=== PATIENT | male | born 1960 | race Caucasian/White ===

== ENCOUNTER 2016-06-20 08:12 | Day surgery (SDC) | payer OTHER ==
--- NOTE | 2016-06-19 18:03 | GHP ---
[f rep st] PREOP HISTORY AND PHYSICAL DATE OF ADMISSION: 06/20/2016 HISTORY OF PRESENT ILLNESS: The patient is a 56-year-old male who is admitted at this time for an op en umbilical hernia. He was having symptoms at work from a protruding umbilical hernia. He was havi ng some constipation but no nausea or vomiting. Hernia has not been incarcerated. It is not totally clear that his umbilical hernia is causing his abdominal pain. REVIEW OF SYSTEMS: Negative for any major medical problems on a full complete review of systems, par ticularly has no asthma, cardiovascular disease or diabetes. ALLERGIES: Penicillin. PRESENT MEDICATIONS: Lipitor. PAST MEDICAL HISTORY: Includes elevated cholesterol. He has had a right inguinal hernia repair and an ORIF of his hand. He does not smoke. PHYSICAL EXAMINATION: VITAL SIGNS: Reveals an alert, 56-year-old male, in no acute distress. HEAD and NECK: Negative for icterus or adenopathy. CHEST: Clear and symmetric. CARDIAC: Exam reveals a regular rhythm without murmurs. ABDOMEN: Soft. He is slightly overweight. He has a reducible, p rotruding umbilical hernia. There are no inguinal hernias. Genitalia is normal. EXTREMITIES: Yifan gn with full pulses and no edema. IMPRESSION: Symptomatic umbilical hernia. PLAN: Open umbilical hernia repair. The risks and options have been fully discussed with the patien t, including failure to relieve symptoms, recurrence of bowel injury, conversion to an open procedure and other problems, and he requests that we proceed. /[id number]/MODL
[~2016-06-20 08:12] MED LIST: BUPIVACAINE 0.5% 30 ML SDV ONE; SKIN ADHESIVE (DERMABOND) 1 EACH TP ONE
[2016-06-20] MEDS ORDERED: LIDOCAINE 1% 5 ML SDV ID PRN (08:38)
[2016-06-20] MEDS ORDERED: LR 1,000 ML IV ONE (08:38)
[2016-06-20] MEDS ORDERED: ceFAZolin 2 GM/DEXTROSE 100 ML IV ONE (09:00)
[2016-06-20] MEDS ORDERED: fentaNYL 100 MCG/2 ML INJ ONE ×2 (10:47→10:48)
[2016-06-20] MEDS ORDERED: LIDOCAINE 2% 5 ML SDV ONE (11:32)
[2016-06-20] MEDS ORDERED: DEXAMETHASONE 4 MG/ML VIAL ONE (11:32)
[2016-06-20] MEDS ORDERED: ROCURONIUM 50 MG/5 ML VIAL ONE (11:32)
[2016-06-20] MEDS ORDERED: epHEDrine SULFATE 10 MG/ML SYR ONE ×2 (11:33→11:36)
[2016-06-20] MEDS ORDERED: ceFAZolin 1 GM VIAL ONE (11:41)
[2016-06-20] MEDS ORDERED: ONDANSETRON 4 MG/2 ML VIAL ONE (11:53)
[2016-06-20] MEDS ORDERED: KETOROLAC 30 MG/1 ML SDV ONE (11:53)
[2016-06-20] MEDS ORDERED: GLYCOPYRROLATE 0.2 MG/1 ML VIAL ONE (12:06)
[2016-06-20] MEDS ORDERED: NEOSTIGMINE METHYLSULFATE 5 MG/5 ML SYR ONE (12:06)
--- NOTE | 2016-07-01 20:56 | GOP ---
[f rep st] OPERATIVE REPORT DATE OF OPERATION: 06/20/2016 SURGEON: Quang Castle MD SHOT FIREMAN: SONY Childs ANESTHESIA: General endotracheal. ANESTHESIOLOGIST: Dr. Bishop PREOPERATIVE DIAGNOSIS: Recurrent incisional hernia. POSTOPERATIVE DIAGNOSIS: Recurrent incisional hernia. PROCEDURE PERFORMED: Recurrent incisional hernia repair with mesh. FINDINGS: Patient was found to have a 4 cm defect in an old periumbilical incision. ESTIMATED BLOOD LOSS: Negligible. DESCRIPTION OF PROCEDURE: Patient taken to the operating room, where he received satisfactory gener al endotracheal anesthesia by Dr. Bishop. He was placed in the supine position, and prepped and dr shawn in the usual sterile fashion. An umbilical incision was made through the previous old scar. Dissection carried down to the fascia . The hernia defect was identified. The sac was dissected free from surrounding subcutaneous tissu e and from the skin of the umbilicus, as well as down to the fascial level. The sac was opened and its contents reduced. A preperitoneal space was created, and a polypropylene mesh patch was placed in the subfascial position, secured around the periphery with interrupted 0 Ethibond [id number] sutures. The defect itself was then closed directly with interrupted 0 Ethibond [id number] caldwell tures. The wound was infiltrated with 0.5% Marcaine. Subcu was then closed with 3-0 Vicryl and the skin wi th a 4-0 Monocryl subcuticular stitch. There were no complications. Taken to the recovery room in good condition. /[id number]/MODL
== END 2016-06-20 15:45 | disposition home or self-care (01) ==
LOC: FSGY 08:12
PROVIDERS: ATTEND Surgery
PROC: 0WQF0ZZ Repair Abdominal Wall, Open Approach (ICD-10-PCS; principal; 2016-06-20 10:42)
DX: K43.2 Incisional hernia without obstruction or gangrene (principal); Z88.0 Allergy status to penicillin; G47.33 Obstructive sleep apnea (adult) (pediatric); Z87.442 Personal history of urinary calculi
CPT/HCPCS: C1781; J0690; J1100; J1885; J2405; J2710; J3010

== ENCOUNTER → 2017-01-06 | Outpatient (CLI) | payer OTHER | LOC: FIMAGING 12:57 | PROVIDERS: ATTEND Internal Medicine Hematology & Oncology | DX: D47.2 Monoclonal gammopathy (principal) ==

== ENCOUNTER 2017-05-30 13:48 | Inpatient (IN) | payer OTHER ==
--- NOTE | 2017-05-30 14:07 | CPEKG ---
Heart Rate: 54 RR Interval: 1111 P-R Interval: 184 QRSD Interval: 114 QT Interval: 432 QTC Interval: 410 P [place]: 41 QRS [place]: -25 T Wave [place]: 25 EKG Severity - ABNORMAL ECG - EKG Impression: SINUS RHYTHM EKG Impression: NONSPECIFIC INTRAVENTRICULAR CONDUCTION DELAY EKG Impression: BORDERLINE R WAVE PROGRESSION, ANTERIOR LEADS Electronically Signed By: Eden Rodriguez 30-May-2017 23:12:12
[2017-05-30] MEDS ORDERED: NITROGLYCERIN 0.4 MG BTL SL PRN (14:21)
[2017-05-30] MEDS ORDERED: ASPIRIN 81 MG CHEWABLE TAB PO ONE (14:21)
[2017-05-30 14:26] LABS: PLATELET COUNT 241 10^3/uL (150-400)
--- NOTE | 2017-05-30 14:27 | EDPHY ---
HPI/HX/ROS/PE/MDM Narrative: CHIEF COMPLAINT: Left-sided chest pain, shortness of breath HISTORY OF PRESENT ILLNESS: The patient is a 57 y/o male with a history of hypercholesterolemia complaining of shortness of breath and left-sided chest pain for the past week. He began noticing shortness of breath on exertion accompanied by left-sided chest pain extending into his left arm and up into the left side of his neck. His symptoms primarily occur on exertion, such as when walking up stairs, but he has noticed a wave of discomfort and flushing at rest. His symptoms last about 5 minutes before resolving. He currently has some pain in his left arm but denies other symptoms. He denies symptoms worsening when breathing deeply. He takes 1 baby aspirin each day. He denies history of diabetes, smoking, cardiac stents, abnormal stress tests, GERD, heartburn, peptic ulcer disease, or any other related conditions. He had one grandfather with cardiac issues in his 50s. No fever, chills, palpitations, vomiting, diarrhea, urinary complaints, headache , lightheadedness. REVIEW OF SYSTEMS: Aside from elements discussed in the HPI, a comprehensive 10-point review of systems was reviewed and is negative. PAST MEDICAL HISTORY: Hypercholesterolemia SOCIAL HISTORY: at bedside, lives in [facility] VITAL SIGNS: Reviewed by me GENERAL: Overweight, no obvious distress. Rates arm discomfort at 2-3/10 HEENT: Atraumatic. Eyes: No icterus, no injection. Mouth: moist mucous membranes. No erythema or lesions. Neck: supple with no adenopathy. LUNGS: Clear to auscultation bilaterally, no wheezes, rhonchi or rales. CARDIAC: Regular rate and rhythm, no rubs, murmurs or gallops. Heart sounds distant. ABDOMEN: Obese, soft, nontender, nondistended, bowel sounds normal. BACK: No CVA tenderness. EXTREMITIES: No trauma. No edema. Range of motion is normal throughout. NEURO: Alert and oriented, grossly nonfocal. SKIN: Warm and dry, no rash. PSYCHIATRIC: Normal mentation, no agitation. ED Course: The patient presents with left-sided chest pain and shortness of breath for 1 week, worse with exertion. The pain extends into his left arm and up the left side of his neck. The pain lasts about 5 minutes before resolving. Deep breaths slightly worsen pain. Plan for EKG, CT, and labs. Nitroglycerin initially ordered; patient declined pain when nursing staff went to administer and also noted to be slightly hypotensive at 97/61. EKG showed sinus rhythm no acute ischemic changes. Troponin negative. Ddimer elevated slightly. CT was negative for PE. Will admit for unstable angina type picture vs ACS. I have spoken with the hospitalist service regarding admission for this patient. They agree to admit. I reassessed this patient and informed him of the results of his workup. He agrees to this course of action. MDM: After history and physical examination, the differential for this patients presenting complaints was considered including but not limited to myocardial ischemia, acute coronary syndrome, pulmonary embolus, chest wall pain, pleural inflammation and pulmonary infectious causes. - Data Points Imaging Results: Imaging Impressions Chest X-Ray 05/30/17 14:22 Impression: Underlying hyperinflation, without acute cardiopulmonary abnormality identified.. Laboratory Results: Laboratory Results 05/30/17 14:18 05/30/17 14:18 05/30/17 05/30/17 05/30/17 14:18 14:18 14:18 WBC 6.81 10^3/uL 10^3/uL (3.80-9.50) RBC 4.89 10^6/uL 10^6/uL (4.40-6.38) Hgb 15.8 g/dL g/dL (13.7-17.5) Hct 44.5 % % (40.0-51.0) MCV 91.0 fL fL (81.5-99.8) MCH 32.3 pg pg (27.9-34.1) MCHC 35.5 g/dL g/dL (32.4-36.7) RDW 11.9 % % (11.5-15.2) Plt Count 241 10^3/uL 10^3/uL (150-400) MPV 9.5 fL fL (8.7-11.7) Neut % (Auto) 47.3 % % (39.3-74.2) Lymph % (Auto) 35.5 % % (15.0-45.0) [place] % (Auto) 12.6 % % (4.5-13.0) Eos % (Auto) 3.2 % % (0.6-7.6) Baso % (Auto) 1.0 % % (0.3-1.7) Nucleat RBC Rel Count 0.0 % % (0.0-0.2) Absolute Neuts (auto) 3.21 10^3/uL 10^3/uL (1.70-6.50) Absolute Lymphs (auto) 2.42 10^3/uL 10^3/uL (1.00-3.00) Absolute Monos (auto) 0.86 10^3/uL H 10^3/uL (0.30-0.80) Absolute Eos (auto) 0.22 10^3/uL 10^3/uL (0.03-0.40) Absolute Basos (auto) 0.07 10^3/uL 10^3/uL (0.02-0.10) Absolute Nucleated RBC 0.00 10^3/uL 10^3/uL (0-0.01) Immature Gran % 0.4 % % (0.0-1.1) Immature Gran # 0.03 10^3/uL 10^3/uL (0.00-0.10) D-Dimer 0.59 ug/mLFEU H ug/mLFEU (0.00-0.50) Sodium 143 mEq/L mEq/L (135-145) Potassium 4.3 mEq/L mEq/L (3.5-5.2) Chloride 107 mEq/L mEq/L (97-110) Carbon Dioxide 24 mEq/l mEq/l (22-31) Anion Gap 12 mEq/L mEq/L (8-16) BUN 16 mg/dL mg/dL (7-23) Creatinine 0.9 mg/dL mg/dL (0.7-1.3) Estimated GFR > 60 Glucose 105 mg/dL H mg/dL (70-100) Calcium 9.9 mg/dL mg/dL (8.5-10.4) Creatine Kinase 153 IU/L IU/L (0-224) CK-MB (CK-2) Fraction 1.96 ng/mL ng/mL (0.00-3.19) Troponin I < 0.012 ng/mL ng/mL (0.000-0.034) Lipase 147 IU/L IU/L (23-300) Medications Given: Magnesium Hydroxide (Milk Of Magnesia) 30 ml PO HS PRN PRN Reason: CONSTIPATION Stop: 11/26/17 20:58 Last Admin: 05/30/17 21:36 Dose: 30 ml Discontinued Medications Aspirin (Aspirin) 324 mg PO EDNOW ONE Stop: 05/30/17 14:22 Last Admin: 05/30/17 15:08 Dose: 324 mg General Time Seen by Provider: 05/30/17 14:05 Initial Vital Signs: Initial Vital Signs Temperature (C) 36.4 C 05/30/17 13:53 Heart Rate 67 05/30/17 13:53 Respiratory Rate 18 05/30/17 13:53 Blood Pressure 123/77 H 05/30/17 13:53 O2 Sat (%) 92 05/30/17 13:53 O2 Delivery Mode Room Air Allergies/Adverse Reactions: Penicillins Allergy (Verified 05/06/16 21:00) Home Medications: Medication Instructions Recorded Aspirin [Aspirin 81mg (*)] 81 mg PO DAILY 12/07/13 Atorvastatin Calcium [Lipitor 40 40 mg PO DAILY 12/07/13 mg (*)] Cholecalciferol (Vitamin D3) 5,000 unit PO DAILY 08/16/15 [Vitamin D3] Departure - Departure Disposition: [facility] Inpatient Acute Clinical Impression: Chest pain Qualifiers: Chest pain type: unspecified Qualified Code(s): R07.9 - Chest pain, unspecified Condition: Fair Report Scribed for: Eden Rodriguez Report Scribed by: Kylee Hazel Date of Report: 05/30/17 Time of Report: 16:09 Physician Review and Approval Statement: Portions of this note were transcribed by a phlebotomist medical lab assistant. I personally performed a history, physical exam, medical decision making, and confirmed accuracy of information the transcribed note.
[2017-05-30 14:35] LABS: CREATINE KINASE 153 IU/L (0-224)
[2017-05-30] MEDS ORDERED: IOPAMIDOL (ISOVUE 370) 100 ML BTL IV ONE (15:44)
[2017-05-30] MEDS ORDERED: ACETAMINOPHEN 325 MG TAB PO PRN (16:46)
[2017-05-30] MEDS ORDERED: ONDANSETRON DISINTEGRATING 4 MG TAB PO PRN (16:46)
[2017-05-30] MEDS ORDERED: ONDANSETRON 4 MG/2 ML VIAL IVP PRN (16:46)
--- NOTE | 2017-05-30 17:18 | GHP ---
[f rep st] HISTORY AND PHYSICAL DATE OF ADMISSION: 05/30/2017 HISTORY OF PRESENT ILLNESS: The patient is a pleasant 57-year-old gentleman, with a history of hyper lipidemia, obesity, and obstructive sleep apnea, who presents with worsening dyspnea on exertion, wit h some left arm pain and chest pain. The patient has not been physically active in a number of years but finds that, with decreasing amounts of exertion over the previous weeks, he has had a lot of lana rtness of breath and some arm pain, chest pain just today. It was going up 5 steps. He has also had a couple of symptoms at rest. They are associated with a small amount of diaphoresis. He has lower extremity edema. He does wear CPAP. He has actually gone so far as to go upstairs and put his CPAP on during the day. He does not wear oxygen with CPAP. He has not had fever, chills, cough, or sput um. Regarding coronary disease risk factors, he has hyperlipidemia for which he takes a statin. He takes an aspirin daily. He does not have hypertension. He does not have a strong family history of coron javi disease. He does not smoke or use cocaine. He does not have diabetes. He mentions a history of anxiety and has had stress tests in the past that have been negative. REVIEW OF SYSTEMS: Complete 10-point review of systems conducted. Negative except as noted in the H PI. PAST MEDICAL HISTORY: Obstructive sleep apnea, obesity, anxiety, and hyperlipidemia. ALLERGIES: Penicillin. HOME MEDICATIONS: Lipitor, aspirin, and vitamin D3. SOCIAL HISTORY: He is a retired teacher. Works for [employer] doing [employer] now. He is kelsey ied. Does not smoke cigarettes. Uses rare alcohol. FAMILY HISTORY: Reviewed and unremarkable. PHYSICAL EXAMINATION: VITAL SIGNS: Temp 36.5, blood pressure 128/78, pulse 52, breathing 13 times a minute, 91% on room air. GENERAL: No acute distress. Obese. Sclerae anicteric. Oropharynx clear . Mucous membranes moist. NECK: Supple, without lymphadenopathy or JVD. LUNGS: Clear to ausculta tion bilaterally. HEART: S1, S2. ABDOMEN: Soft, nontender, nondistended. LOWER EXTREMITIES: 1+ edema bilaterally. Calves are nontender. SKIN: Without rash. DATA: White count 6.8, hematocrit 44.5, platelets are 241,000. D-dimer is elevated at 0.59. Sodium 142, potassium 4.3, chloride 107, bicarb 24, BUN 16, creatinine 0.9, glucose 105. CK is 153, tropon in less than 0.012. Lipase 147. Chest x-ray, interpreted by me, shows no acute cardiopulmonary dise ase. EKG, interpreted by me, shows sinus at 54 with normal axis and intervals. No ST or T-wave barnes ges. No prior for comparison. There is a CTA of the chest that shows no evidence of thromboembolic pulmonary disease with minimal bibasilar atelectasis. I have discussed the case with Dr. Cora Jacinto and Dr. Eden Rodriguez. ASSESSMENT/PLAN: This is a 57-year-old gentleman with exertional chest pain. 1. Chest pain. This sounds like a fairly classic description of exertional angina with increasing r egularity. He has negative troponins and a nonischemic EKGs. Therefore, heparin is not warranted. He takes an aspirin on a daily basis which I have continued. I will order echocardiogram, cycle trop onins, perform a treadmill test with nuclear medicine images in the morning. I will have Cardiology see him. 2. Obstructive sleep apnea. Continue CPAP. 3. Hyperlipidemia. Check a lipid panel in the morning. 4. Elevated glucose. This is minimally so on a nonfasting sample and is not consistent with a diagn osis of diabetes. 5. Anxiety. I have taken the time to explain his current situation to him. He is currently not on a ny anxiety medicines. 6. Bradycardia. Will follow. /[id number]/MODL
[2017-05-30] MEDS ORDERED: MAGNESIUM HYDROXIDE 30 ML UDCUP PO PRN (20:59)
[2017-05-31] MEDS: MELATONIN 3 MG TAB PO SCH ×2 (03:10→20:17)
[2017-05-31] MEDS: ENOXAPARIN 40 MG/0.4 ML SYR SC SCH (09:19)
[2017-05-31] MEDS: ASPIRIN 81 MG CHEWABLE TAB PO SCH (09:19)
[2017-05-31] MEDS: ATORVASTATIN CALCIUM 40 MG TAB PO SCH (09:19)
[2017-05-31] MEDS: CHOLECALCIFEROL VIT D3 1,000 UNITS TAB PO SCH (09:19)
--- NOTE | 2017-05-31 09:57 | ECHO ---
[email or web address] [address] [address] Main: [phone] Fax: Transthoracic Echocardiogram Name: ANTELMO TURNER MR#: [id number] Study Date: 05/31/2017 Study Time: 07:49 AM Date of : 1960 Age: 57 year(s) Height: 188 cm (74 in.) Weight: 136.08 kg (300 lb.) BSA: 2.58 m2 Gender: Male Examination: Echo Indication: Exertional CP with known JESIKA Image Quality: Technically Difficult Contrast: Requested by: Pete Munoz BP: / Heart Rate: Rhythm: Indication: Exertional CP with known JESIKA Procedure Staff Streetcar Dispatcher: Cecilia Duvall Reading Physician: Basil Martinez Requesting Provider: Conclusions: LV appears to be normal in size and mildly thickened.. Moderately dilated right ventricle. The right atrium is mildly dilated. Trivial tricuspid valve regurgitation. Limited parasternal images due to body habitus. Measurements: Chambers Valvular Assessment AV/MV Valvular Assessment TV/PV Normal Normal Normal Name Value Range Name Value Range Name Value Range LVEF (BP): 67 % (>=55 %) AV meanP mmHg ( - ) PV Vmax: 0.88 m/s (0.6 m/s-0.9 RVDd(2D): 5.3 cm (1.9 cm-3.8 LVOT Vmax: 1.23 m/s (0.7 m/s-1.1 m/s) cmmm) m/s) PV PGmax: 3 mmHg ( - ) MV E Vmax: 0.84 m/s ( - ) MV A Vmax: 0.54 m/s ( - ) MV E/A: 1.56 ( - ) MV meanP mmHg ( - ) Continued Measurements: Chambers Valvular Assessment AV/MV Valvular Assessment TV/PV Name Value Name Value Name Value LADs Lon.2 cm MV DecTime: 158 m/s CVP (est.): 10 mmHg LA Area: 17.5 cm2 MV E/E' Septal: 9.70 LA Volume: 55 ml MV E/E' Lateral: 7.60 LA Volume Index: 21.3 ml/m2 MV VTI: 29.40 cm TAPSE: 3.7 cm Additional Vessels Patient: ANTELMO TURNER Study Date: 05/31/2017 Page 1 of 2 07:49 AM Name Value Ao Ascendin.4 cm Findings: Left Ventricle: LV appears to be normal in size and mildly thickened.. Right Ventricle: Moderately dilated right ventricle. Normal RV function. Left Atrium: The left atrium is normal in size. Right Atrium: The right atrium is mildly dilated. Mitral Valve: The mitral valve is normal in appearance and function. There is no significant mitral valve regurgitation. No mitral stenosis is present. Aortic Valve: Aortic valve is not well visualized. There is no aortic valve regurgitation. No aortic valve stenosis is present. Tricuspid Valve: The tricuspid valve is normal in appearance and function. Trivial tricuspid valve regurgitation. Pulmonic Valve: Pulmonary valve not well visualized. There is no pulmonic regurgitation seen. Aorta: Normal size ascending aorta measuring 3.4 cm. IVC: The IVC is normal sized. There is greater bety 50% respiratory excursion. Pericardium: No pericardial effusion. There is pericardial fat. Exam Comments: Limited parasternal images due to body habitus. (No Signature Object) Patient: ANTELMO TURNER Study Date: 05/31/2017 Page 2 of 2 07:49 AM [id number]
[2017-05-31] MEDS ORDERED: REGADENOSON 0.4 MG/5 ML SYR IVP ONE (10:50)
--- NOTE | 2017-05-31 11:56 | CPIP ---
[f rep st] INVASIVE CARDIAC PROCEDURE PROCEDURE PERFORMED: Stress test. INDICATIONS: Chest discomfort. Stress test requested by Hospitalist team. DESCRIPTION OF PROCEDURE: Written informed consent was obtained. Patient was brought to the exercis e stress test room, all appropriate monitoring was established and consents were signed. The patient exercised on standard Jared protocol for 5 minutes. He achieved 85% of peak maximum hear t rate. Cardiolite was injected. Had 85% predicted maximum heart rate. Symptoms of shortness of breath at baseline slightly worsened with exercise. Oxygen saturation was 8 9% at rest and 87% at peak exercise. Blood pressure response normal. EKG: Normal sinus rhythm with IVCD at baseline, no acute ST or T-wave changes with exercise. Nuclear stress test will be reported by radiologist. /[id number]/MODL
--- NOTE | 2017-05-31 16:00 | HOSPPROG ---
Hospitalist Progress Note Assessment/Plan: # chest pain - pt with exertional chest pain which had been increasing in the days prior to presentation toponin <0.012 x 3 - EKG (personally reviewed and interpreted) without acute ischemia - stress nuclear images with abnormality - continue telemetry - rest images in am - continue ASA 81mg # obesity - suspect some OHs with described symptoms - cardiac/pulmonary rehab would be useful oxygen saturations 90% on RA - dietary modifications # HLD- continue statin # proph- lovenox # diet- cardiac # dispo - > 2MN as requires additional diagnostics for chest pain I have discussed the case with Dr. Griffin- abnormalities on nuclear images require wrist imaging for comparison and interpretation Subjective: No chest pain this morning Objective: Vital Signs Temp Pulse Resp BP Pulse Ox 36.7 C 70 10 L 130/73 H 89 L 05/31/17 15:39 05/31/17 15:39 05/31/17 15:39 05/31/17 15:39 05/31/17 15:39 Laboratory Results 05/31/17 03:22 05/30/17 05/31/17 06/01/17 05:59 05:59 05:59 Intake Total 600 Balance 600 - Physical Exam Constitutional: obese Eyes: anicteric sclera Ears, Nose, Mouth, Throat: moist mucous membranes Cardiovascular: regular rate and rhythym Respiratory: no respiratory distress, no rales or rhonchi Gastrointestinal: normoactive bowel sounds Genitourinary: no bladder fullness Skin: warm Musculoskeletal: No asymmetric calves Neurologic: AAOx3 Psychiatric: interacting appropriately Lymph, Heme, Immunologic: no cervical LAD ICD10 Worksheet Patient Problems: Problems Problem Status Onset Chest pain Acute
--- NOTE | 2017-05-31 16:19 | PDMN ---
Medical Necessity Medical necessity: C/M review: Patient meets INPT criteria under [facility] M-89 Chest pain: Acute chest pain - exertional chest pain which had been increasing in the days prior to admit, 05/31/2017 myocardial perfusion stress nuclear images with abnormality concerning for possible cardiac ischemia requiring planned 06/01/2016 myocardial perfusion scan rest images, ongoing cardiac monitoring, comorbid obesity, hyperlipidemia, O2 90% RA sats. MD anticipates > 2 MN LOS for ongoing med nec for eval and TX of above.
--- NOTE | 2017-05-31 16:32 | ASMTCMCOM ---
CM Note CM Note Notes: Patient admitted with dyspnea on exertion. He had an abnormal stress test and is being admitted for additional diagnostics. Patient is , employed and normally independent. I anticipate no discharge needs. CM available if any arise. Date Signed: 05/31/2017 04:31 PM Electronically Signed By:More Peterson RN
[2017-05-31 21:38] VITALS: RESP 18
[2017-06-01 08:42] VITALS: O2SAT 93
[2017-06-01] MEDS ORDERED: ENOXAPARIN 40 MG/0.4 ML SYR SC SCH (10:15)
[2017-06-01] MEDS: ENOXAPARIN 40 MG/0.4 ML SYR SC SCH (10:43)
[2017-06-01 12:20] VITALS: BP 124/74; PULSE 63; TEMP 98.1
[2017-06-01] MEDS: ATORVASTATIN CALCIUM 40 MG TAB PO SCH (13:18)
[2017-06-01] MEDS: ASPIRIN 81 MG CHEWABLE TAB PO SCH (13:18)
[2017-06-01] MEDS: CHOLECALCIFEROL VIT D3 1,000 UNITS TAB PO SCH (13:19)
--- NOTE | 2017-06-01 18:07 | GDS ---
[f rep st] DISCHARGE SUMMARY DISCHARGE DIAGNOSES: Include: 1. Acute chest pain, noncardiac. 2. Obesity. 3. Obstructive sleep apnea. 4. Hyperlipidemia. HISTORY OF PRESENT ILLNESS: A 57-year-old male with obesity who presents with complaints of exertion al chest pain. For details of the patient's initial presentation, please see the History and Physica l dated 05/31/2017. CONSULTATIONS: None. PROCEDURES: On 05/31/2017, patient underwent myocardial stress testing that showed no inducible isch emia. HOSPITAL COURSE: By issue: 1. Acute exertional chest pain. The patient certainly had risk factors, with obesity and hyperlipid emia. Patient was admitted. Serial troponins and EKGs were negative. Underwent stress imaging with Lexiscan and was found to have abnormal imaging. The patient was kept overnight to obtain rest imag es. Rest images confirmed a negative study for any inducible ischemia. The patient is being dischar [facility] with recommendation for a cardiovascular exercise plan beginning with walking and increasing phys ical exertional capacity incrementally over the course of the next several weeks. He will follow velia Keene in the outpatient setting for more detailed recommendation and up-titration of his exercise regimen in the future. 2. Obesity. Patient is quite aware that his weight above 300 pounds is complicating his exertional capacity. Patient will discuss in greater detail with his outpatient provider, Dr. Keene. 3. Hyperlipidemia. Patient was continued on his home medication without alteration. MEDICATIONS AT THE TIME OF TRANSFER: Please reference medication reconciliation form printed on 05/18. FOLLOWUP APPOINTMENTS: Include with Dr. Keene in the next 2-4 weeks post disposition. PENDING STUDIES: At the time of this dictation, are none. TIME SPENT: I spent greater than 30 minutes in the planning and coordination of this discharge. /[id number]/MODL
--- NOTE | 2017-06-02 12:42 | ASDISCHSUM ---
Discharge Information Plan Status:Home with No Needs Medically Cleared to Leave:05/31/2017 Discharge Date:06/01/2017 01:39 PM CM D/C Disposition: ADT D/C Disposition:Home, Routine, Self-Care Projected Discharge Date:06/01/2017 12:00 AM Transportation at D/C: Discharge Delay Reason: Follow-Up Date:06/01/2017 12:00 AM Discharge Slot: Final Diagnosis: Placement Information Patient Contact Information Contact Name:TARIQ Relationship: Address:[address] City:[facility] Phone: [facility] Code:[place] [address] Email: Financial Information Financial Class:HMO and PPO Plans Primary Plan Desc:[employer]RI[employer]NE PPO POS HMO SIG ADM Primary Plan Number:[id number] Secondary Plan Desc: Secondary Plan Number: Assessment Information [facility] CM Progress Note CM Note CM Note Notes: Patient admitted with dyspnea on exertion. He had an abnormal stress test and is being admitted for additional diagnostics. Patient is , employed and normally independent. I anticipate no discharge needs. CM available if any arise. Date Signed: 05/31/2017 04:31 PM Electronically Signed By:More Peterson RN Intervention Information
== END 2017-06-01 13:39 | disposition home or self-care (01) | DRG 313 ==
LOC: F2W 16:39 → OBSVTOIN 05-31 15:02
PROVIDERS: ADMIT Internal Medicine; ATTEND Hospitalist
DX: R07.89 Other chest pain (principal); E66.09 Other obesity due to excess calories; Z68.41 Body mass index [BMI] 40.0-44.9, adult; G47.33 Obstructive sleep apnea (adult) (pediatric); E78.5 Hyperlipidemia, unspecified
CPT/HCPCS: A9500; G0378; J1650; J2785; Q9967

== ENCOUNTER 2018-01-24 19:18 | Emergency (ER) | payer OTHER ==
[2018-01-24] MEDS ORDERED: NS 1,000 ML IV ONE (19:34)
--- NOTE | 2018-01-24 19:43 | EDPHY ---
H & P Stated Complaint: LLQ pain, radiating to back Time Seen by Provider: 01/24/18 19:43 HPI/ROS: HPI CHIEF COMPLAINT: Left lower quadrant abdominal pain. HISTORY OF PRESENT ILLNESS: This is a 57-year-old male, otherwise healthy does have a history of hyperlipidemia, hernia as and kidney stones, presents emergency room with 5 days of left lower quadrant abdominal pain dull ache. Rather constant. With nausea but no fever, denies any chest pain or shortness of breath. Past Medical History: Previous hernias, kidney stones Past Surgical History: Hernia repair Social History: For denies drugs alcohol tobacco Family History: Noncontributory ROS REVIEW OF SYSTEMS: 10 Systems were reviewed and negative with the exception of the elements mentioned in the history of present illness. Exam Constitutional nontoxic appearing triage nursing summary reviewed, vital signs reviewed, awake/alert. Eyes normal conjunctivae and sclera, EOMI, PERRLA. HENT normal inspection, atraumatic, moist mucus membranes, no epistaxis, neck supple/ no meningismus, no raccoon eyes. Respiratory clear to auscultation bilaterally, normal breath sounds, no respiratory distress, no wheezing. Cardiovascular rate normal, regular rhythm, no murmur, no edema, distal pulses normal. Gastrointestinal mild tender palpation left lower quadrant, no rebound, no guarding, normal bowel sounds, no distension, no pulsatile mass. Genitourinary no CVA tenderness. Musculoskeletal no midline vertebral tenderness, full range of motion, no calf swelling, no tenderness of extremities, no meningismus, good pulses, neurovascularly intact. Skin pink, warm, & dry, no rash, skin atraumatic. Neurologic awake, alert and oriented x 3, AAOx3, moves all 4 extremities equally, motor intact, sensory intact, CN II-XII intact, normal cerebellar, normal vision, normal speech. Psychiatric normal mood/affect. Heme/Lymph/Immune no lymphadenopathy. Differential diagnosis includes but is not limited to and in no particular order : Bowel obstruction, appendicitis, gallbladder disease, diverticulitis, colitis , enteritis, perforated viscus, gastritis, GERD, esophagitis, urinary tract infection, pyelonephritis, kidney stones Medical Decision Making: Plan for this patient IV establishment IV fluid bolus , CT scan abdomen pelvis with IV contrast rule out acute diverticulitis, check basic blood work. And re-evaluate Re-evaluation: Blood work reviewed CT scan abdomen pelvis with IV contrast reviewed shows no evidence of acute diverticulitis however does show epiploic appendagitis versus omental infarct. Otherwise no acute inflammatory process seen. 2100: I discussed the resulted the patient CT scan and blood work in detail. He understands he has epiploic appendagitis versus omental infarct. Recommends anti-inflammatory pain medicine. I do feel comfortable allowing to be discharged given this diagnosis. However he has worsening abdominal pain, fever, vomiting needs to return. He understands this Recommend anti-inflammatory pain medicine. Limited supply of [place] for pain control. Source: Patient - Personal History Current Tetanus Diphtheria and Acellular Pertussis (TDAP): Yes - Medical/Surgical History Hx Asthma: No Hx Chronic Respiratory Disease: No Hx Diabetes: No Hx Cardiac Disease: No Hx Renal Disease: No Hx Cirrhosis: No Hx Alcoholism: No Hx HIV/AIDS: No Hx Splenectomy or Spleen Trauma: No Other PMH: high cholesterol, sleep apnea, anxiety, obesity. PSH- ortho, hernia repair, kidney stones - Social History Smoking Status: Never smoked Constitutional: Initial Vital Signs Temperature (C) 37.2 C 01/24/18 19:27 Heart Rate 62 01/24/18 19:27 Respiratory Rate 18 01/24/18 19:27 Blood Pressure 122/66 H 01/24/18 19:27 O2 Sat (%) 91 L 01/24/18 19:27 O2 Delivery Mode Room Air Allergies/Adverse Reactions: Penicillins Allergy (Verified 01/24/18 19:26) Home Medications: Medication Instructions Recorded Aspirin [Aspirin 81mg (*)] 81 mg PO DAILY 12/07/13 Atorvastatin Calcium [Lipitor 40 40 mg PO DAILY 12/07/13 mg (*)] Cholecalciferol (Vitamin D3) 5,000 unit PO DAILY 08/16/15 [Vitamin D3] Flomax 01/24/18 Hydrocodone/APAP 5/325 [[place] 1 - 2 tab PO Q4H PRN #10 tab 01/24/18 5/325] Ibuprofen [Motrin (*)] 800 mg PO Q6-8PRN #14 tab 01/24/18 Medical Decision Making - Data Points Laboratory Results: Laboratory Results 01/24/18 19:40 01/24/18 19:40 01/24/18 01/24/18 01/24/18 19:53 19:40 19:40 WBC 7.85 10^3/uL 10^3/uL (3.80-9.50) RBC 4.58 10^6/uL 10^6/uL (4.40-6.38) Hgb 14.4 g/dL g/dL (13.7-17.5) POC Hgb 15.0 gm/dL gm/dL (13.7-17.5) Hct 42.2 % % (40.0-51.0) POC Hct 44 % % (40-51) MCV 92.1 fL fL (81.5-99.8) MCH 31.4 pg pg (27.9-34.1) MCHC 34.1 g/dL g/dL (32.4-36.7) RDW 11.9 % % (11.5-15.2) Plt Count 234 10^3/uL 10^3/uL (150-400) MPV 9.5 fL fL (8.7-11.7) Neut % (Auto) 51.9 % % (39.3-74.2) Lymph % (Auto) 35.0 % % (15.0-45.0) [place] % (Auto) 9.2 % % (4.5-13.0) Eos % (Auto) 3.1 % % (0.6-7.6) Baso % (Auto) 0.5 % % (0.3-1.7) Nucleat RBC Rel Count 0.0 % % (0.0-0.2) Absolute Neuts (auto) 4.08 10^3/uL 10^3/uL (1.70-6.50) Absolute Lymphs (auto) 2.75 10^3/uL 10^3/uL (1.00-3.00) Absolute Monos (auto) 0.72 10^3/uL 10^3/uL (0.30-0.80) Absolute Eos (auto) 0.24 10^3/uL 10^3/uL (0.03-0.40) Absolute Basos (auto) 0.04 10^3/uL 10^3/uL (0.02-0.10) Absolute Nucleated RBC 0.00 10^3/uL 10^3/uL (0-0.01) Immature Gran % 0.3 % % (0.0-1.1) Immature Gran # 0.02 10^3/uL 10^3/uL (0.00-0.10) POC Sodium 143 mEq/L mEq/L (135-145) Sodium 141 mEq/L mEq/L (135-145) POC Potassium 3.6 mEq/L mEq/L (3.3-5.0) Potassium 3.9 mEq/L mEq/L (3.3-5.0) POC Chloride 106 mEq/L mEq/L (97-110) Chloride 108 mEq/L mEq/L (97-110) Carbon Dioxide 25 mEq/l mEq/l (22-31) Anion Gap 8 mEq/L mEq/L (8-16) POC BUN 16 mg/dL mg/dL (7-23) BUN 17 mg/dL mg/dL (7-23) Creatinine 1.0 mg/dL mg/dL (0.7-1.3) POC Creatinine 1.0 mg/dL mg/dL (0.7-1.3) Estimated GFR > 60 Glucose 128 mg/dL H mg/dL (70-100) POC Glucose 128 mg/dL H mg/dL (70-100) Calcium 9.6 mg/dL mg/dL (8.5-10.4) Total Bilirubin 0.9 mg/dL mg/dL (0.1-1.4) Conjugated Bilirubin 0.1 mg/dL mg/dL (0.0-0.5) Unconjugated Bilirubin 0.8 mg/dL mg/dL (0.0-1.1) AST 21 IU/L IU/L (17-59) ALT 39 IU/L IU/L (21-72) Alkaline Phosphatase 65 IU/L IU/L (38-126) Total Protein 6.8 g/dL g/dL (6.3-8.2) Albumin 3.9 g/dL g/dL (3.5-5.0) Lipase 147 IU/L IU/L (23-300) Medications Given: Discontinued Medications Sodium Chloride (Ns) 1,000 mls @ 0 mls/hr IV ONCE ONE; Wide Open PRN Reason: Protocol Stop: 01/24/18 19:35 Last Admin: 01/24/18 19:44 Dose: 1,000 mls Point of Care Test Results: Chemistry 01/24/18 19:53 POC Sodium 143 mEq/L mEq/L (135-145) POC Potassium 3.6 mEq/L mEq/L (3.3-5.0) POC Chloride 106 mEq/L mEq/L (97-110) POC BUN 16 mg/dL mg/dL (7-23) POC Creatinine 1.0 mg/dL mg/dL (0.7-1.3) POC Glucose 128 mg/dL H mg/dL (70-100) ISTAT H&H 01/24/18 19:53 POC Hgb 15.0 gm/dL gm/dL (13.7-17.5) POC Hct 44 % % (40-51) Departure - Departure Disposition: Home, Routine, Self-Care Clinical Impression: Epiploic appendagitis Condition: Good Instructions: Acute Abdominal Pain (ED) Additional Instructions: 1. Recommend rest. 2. Lots of fluids. 3. Return emergency room if there is worsening abdominal pain fever vomiting 4. Anti-inflammatory pain medicine 5. Narcotic pain medicine if you're having severe pain. Referrals: Abdiaziz Keene MD [Primary Care Provider] - As per Instructions Prescriptions: Hydrocodone/APAP 5/325 [[place] 5/325] 1 - 2 tab PO Q4H PRN #10 tab PRN Reason: Pain, Moderate Ibuprofen [Motrin (*)] 800 mg PO Q6-8PRN #14 tab
[2018-01-24 19:58] LABS: PLATELET COUNT 234 10^3/uL (150-400)
[2018-01-24] MEDS ORDERED: IOPAMIDOL (ISOVUE-300) 100 ML BTL ONE (20:12)
[2018-01-24] MEDS ORDERED: KETOROLAC 15 MG/1 ML SDV IVP ONE (20:48)
[2018-01-24 20:51] VITALS: BP 129/64
== END 2018-01-24 21:11 | disposition home or self-care (01) ==
DX: K63.89 Other specified diseases of intestine (principal); Q43.8 Other specified congenital malformations of intestine; E86.9 Volume depletion, unspecified
CPT/HCPCS: 82435-PO; 82565-PO; 82947-PO; 84132-PO; 84295-PO; 84520-PO; 85014-PO; 96374; J1885; Q9967

== ENCOUNTER 2018-01-31 14:52 | Emergency (ER) | payer OTHER ==
--- NOTE | 2018-01-31 15:05 | EDPHY ---
HPI/HX/ROS/PE/MDM Narrative: CHIEF COMPLAINT: "Incredible fatigue" HPI: The patient is a 57 y/o male arriving with his complaining of abnormal fatigue for the last day. He was seen here last week for LLQ abdominal pain and an abdominal CT showed epiploic appendagitis. He feels he is recovering from those symptoms well with rest. He followed up with his PCP, Dr. Keene, two days ago. At that visit he had dark and cloudy urine that was positive for blood and protein per the patient and was sent to the lab for further evaluation. Yesterday he went to work and upon leaving he noticed significant difficulty walking out to his car due to global fatigue and pain in both legs. He arrived home and took 800mg ibuprofen and slept for 2 hours. This morning he had significant difficulty walking up stairs due to fatigue and weakness so he opted to come into the ED. He says "it takes all of my effort to get from the parking lot to here." He reports his dyspnea is worse from baseline. He denies fever, chest pain, vomiting, diarrhea, paresthesias, focal weakness, recent trauma, or recent illness. REVIEW OF SYSTEMS: A comprehensive 10 system review of systems is otherwise negative aside from elements mentioned in the history of present illness. PMH: Hernias, kidney stones, obesity SOCIAL HISTORY: at bedside. Lives in [place]. Retired teacher, now works with [employer]. PCP: Dr. Keene. Prior medical records reviewed including ED visit 01/24/18 for abdominal pain. PHYSICAL EXAM: General:Patient is alert, in no acute distress. ENT:Eyes are normal to inspection. ENT inspection normal. Neck: Normal inspection. Full range of motion. Respiratory:No respiratory distress. Breath sounds normal bilaterally. Cardiovascular: Regular rate and rhythm. Strong peripheral pulses. Normal cap refill. Abdomen:The abdomen is nontender to palpation. There are no peritoneal signs. Back: Normal to inspection. No tenderness to palpation. Skin: Normal color. No rash. Warm and dry. Extremities: Normal appearance. Full range of motion. Neuro: Oriented x3. Normal motor function. Normal sensory function. ED Course: 57 y/o male presents with a 1-day history of "incredible fatigue" with associated [id number] shortness of breath and leg cramping. Exam is unremarkable. Plan for IV, labs, UA, EKG, 1L IV NS. The 12 lead EKG was interpreted by myself. See hard copy and/or "tracemaster" electronic copy for interpretation. UA shows elevated RBCs. Creatine Kinase mildly elevated at 260. Spoke with Dr. Keene, patient's PCP. He recommends discharge home and would like patient to follow up with his office in the morning for repeat lab work. Reassessed patient and discussed work up and Dr. Keene's recommendations. He is comfortable with plan for discharge. Return precautions discussed. MDM: This patient presents with an unusual cluster of symptoms and lab abnormalities. He has mild unconjugated hyperbilirubinemia suggesting hemolysis , blood in urine, and mild elevation of CK, in setting of fatigue, leg muscle weakness and abdominal pain. I am unable to find a unifying diagnosis. After discussion with the patient and his PCP Dr. Keene, all parties are comfortable with the plan for close outpatient follow-up and repeat testing tomorrow. I see no signs of severe rhabdomyolosis, sepsis, ACS, AAA, renal stone. - Data Points Laboratory Results: Laboratory Results 01/31/18 15:10 01/31/18 15:10 01/31/18 01/31/18 01/31/18 16:20 15:45 15:14 WBC RBC Hgb Hct MCV MCH MCHC RDW Plt Count MPV Neut % (Auto) Lymph % (Auto) [place] % (Auto) Eos % (Auto) Baso % (Auto) Nucleat RBC Rel Count Absolute Neuts (auto) Absolute Lymphs (auto) Absolute Monos (auto) Absolute Eos (auto) Absolute Basos (auto) Absolute Nucleated RBC Immature Gran % Immature Gran # PT INR APTT Sodium Potassium Chloride Carbon Dioxide Anion Gap BUN Creatinine Estimated GFR Glucose Calcium Total Bilirubin Conjugated Bilirubin Unconjugated Bilirubin AST ALT Alkaline Phosphatase Creatine Kinase CK-MB (CK-2) Fraction CK-MB (CK-2) % Creatine Kinase Interp POC Troponin I 0.01 ng/mL ng/mL (0.00-0.08) Total Protein Albumin Urine Color Urine Appearance Urine pH Ur Specific [place] Urine Protein Urine Ketones Urine Blood Urine Nitrate Urine Bilirubin Urine Urobilinogen Ur Leukocyte Esterase Urine RBC 5-10 /hpf H /hpf (0-3) Urine WBC 0-1 /hpf /hpf (0-3) Ur Epithelial Cells NONE SEEN /lpf /lpf (NONE-1+) Urine Mucus TRACE /lpf /lpf (NONE-1+) Urine Glucose Nasal Influenza A PCR NEGATIVE FOR FLU A (NEGATIVE) Nasal Influenza B PCR NEGATIVE FOR FLU B (NEGATIVE) 01/31/18 01/31/18 01/31/18 15:10 15:10 15:10 WBC RBC Hgb Hct MCV MCH MCHC RDW Plt Count MPV Neut % (Auto) Lymph % (Auto) [place] % (Auto) Eos % (Auto) Baso % (Auto) Nucleat RBC Rel Count Absolute Neuts (auto) Absolute Lymphs (auto) Absolute Monos (auto) Absolute Eos (auto) Absolute Basos (auto) Absolute Nucleated RBC Immature Gran % Immature Gran # PT 14.9 SEC SEC (12.0-15.0) INR 1.15 (0.83-1.16) APTT 29.8 SEC SEC (23.0-38.0) Sodium 138 mEq/L mEq/L (135-145) Potassium 4.0 mEq/L mEq/L (3.3-5.0) Chloride 104 mEq/L mEq/L (97-110) Carbon Dioxide 21 mEq/l L mEq/l (22-31) Anion Gap 13 mEq/L mEq/L (8-16) BUN 15 mg/dL mg/dL (7-23) Creatinine 0.9 mg/dL mg/dL (0.7-1.3) Estimated GFR > 60 Glucose 102 mg/dL H mg/dL (70-100) Calcium 9.3 mg/dL mg/dL (8.5-10.4) Total Bilirubin 1.7 mg/dL H mg/dL (0.1-1.4) Conjugated Bilirubin 0.2 mg/dL mg/dL (0.0-0.5) Unconjugated Bilirubin 1.5 mg/dL H mg/dL (0.0-1.1) AST 21 IU/L IU/L (17-59) ALT 36 IU/L IU/L (21-72) Alkaline Phosphatase 68 IU/L IU/L (38-126) Creatine Kinase 260 IU/L H IU/L (0-224) CK-MB (CK-2) Fraction 1.83 ng/mL ng/mL (0.00-4.55) CK-MB (CK-2) % 0.7 % % (0.0-4.0) Creatine Kinase Interp NEGATIVE (NEGATIVE) POC Troponin I Total Protein 7.1 g/dL g/dL (6.3-8.2) Albumin 4.2 g/dL g/dL (3.5-5.0) Urine Color YELLOW Urine Appearance CLEAR Urine pH 5.0 (5.0-7.5) Ur Specific [place] 1.013 (1.002-1.030) Urine Protein NEGATIVE (NEGATIVE) Urine Ketones NEGATIVE (NEGATIVE) Urine Blood 2+ H (NEGATIVE) Urine Nitrate NEGATIVE (NEGATIVE) Urine Bilirubin NEGATIVE (NEGATIVE) Urine Urobilinogen NEGATIVE EU EU (0.2-1.0) Ur Leukocyte Esterase NEGATIVE (NEGATIVE) Urine RBC Urine WBC Ur Epithelial Cells Urine Mucus Urine Glucose NEGATIVE (NEGATIVE) Nasal Influenza A PCR Nasal Influenza B PCR 01/31/18 15:10 WBC 6.21 10^3/uL 10^3/uL (3.80-9.50) RBC 4.64 10^6/uL 10^6/uL (4.40-6.38) Hgb 14.7 g/dL g/dL (13.7-17.5) Hct 42.3 % % (40.0-51.0) MCV 91.2 fL fL (81.5-99.8) MCH 31.7 pg pg (27.9-34.1) MCHC 34.8 g/dL g/dL (32.4-36.7) RDW 11.9 % % (11.5-15.2) Plt Count 233 10^3/uL 10^3/uL (150-400) MPV 9.5 fL fL (8.7-11.7) Neut % (Auto) 76.6 % H % (39.3-74.2) Lymph % (Auto) 13.2 % L % (15.0-45.0) [place] % (Auto) 8.4 % % (4.5-13.0) Eos % (Auto) 1.1 % % (0.6-7.6) Baso % (Auto) 0.2 % L % (0.3-1.7) Nucleat RBC Rel Count 0.0 % % (0.0-0.2) Absolute Neuts (auto) 4.76 10^3/uL 10^3/uL (1.70-6.50) Absolute Lymphs (auto) 0.82 10^3/uL L 10^3/uL (1.00-3.00) Absolute Monos (auto) 0.52 10^3/uL 10^3/uL (0.30-0.80) Absolute Eos (auto) 0.07 10^3/uL 10^3/uL (0.03-0.40) Absolute Basos (auto) 0.01 10^3/uL L 10^3/uL (0.02-0.10) Absolute Nucleated RBC 0.00 10^3/uL 10^3/uL (0-0.01) Immature Gran % 0.5 % % (0.0-1.1) Immature Gran # 0.03 10^3/uL 10^3/uL (0.00-0.10) PT INR APTT Sodium Potassium Chloride Carbon Dioxide Anion Gap BUN Creatinine Estimated GFR Glucose Calcium Total Bilirubin Conjugated Bilirubin Unconjugated Bilirubin AST ALT Alkaline Phosphatase Creatine Kinase CK-MB (CK-2) Fraction CK-MB (CK-2) % Creatine Kinase Interp POC Troponin I Total Protein Albumin Urine Color Urine Appearance Urine pH Ur Specific [place] Urine Protein Urine Ketones Urine Blood Urine Nitrate Urine Bilirubin Urine Urobilinogen Ur Leukocyte Esterase Urine RBC Urine WBC Ur Epithelial Cells Urine Mucus Urine Glucose Nasal Influenza A PCR Nasal Influenza B PCR Medications Given: Discontinued Medications Sodium Chloride (Ns) 1,000 mls @ 0 mls/hr IV EDNOW ONE; Wide Open PRN Reason: Protocol Stop: 01/31/18 15:08 Last Admin: 01/31/18 15:16 Dose: 1,000 mls Point of Care Test Results: Chemistry 01/31/18 15:14 POC Troponin I 0.01 ng/mL ng/mL (0.00-0.08) General Time Seen by Provider: 01/31/18 14:58 Initial Vital Signs: Initial Vital Signs Temperature (C) 37.7 C 01/31/18 14:55 Heart Rate 74 01/31/18 14:55 Respiratory Rate 18 01/31/18 14:55 Blood Pressure 131/85 H 01/31/18 14:55 O2 Sat (%) 91 L 01/31/18 14:55 O2 Delivery Mode Room Air Allergies/Adverse Reactions: Penicillins Allergy (Verified 01/31/18 14:53) Home Medications: Medication Instructions Recorded Aspirin [Aspirin 81mg (*)] 81 mg PO DAILY 12/07/13 Atorvastatin Calcium [Lipitor 40 40 mg PO DAILY 12/07/13 mg (*)] Cholecalciferol (Vitamin D3) 5,000 unit PO DAILY 08/16/15 [Vitamin D3] Flomax 01/24/18 Hydrocodone/APAP 5/325 [[place] 1 - 2 tab PO Q4H PRN #10 tab 01/24/18 5/325] Ibuprofen [Motrin (*)] 800 mg PO Q6-8PRN #14 tab 01/24/18 Departure - Departure Disposition: Home, Routine, Self-Care Clinical Impression: Fatigue, Myositis Condition: Good Instructions: Fatigue (ED) Additional Instructions: Follow up with your primary care provider tomorrow morning for repeat lab work. Return to the ED for any worsening of condition. Referrals: Abdiaziz Keene MD [Primary Care Provider] - As per Instructions Report Scribed for: Kang Hunter Report Scribed by: Farrah Jennings Date of Report: 01/31/18 Time of Report: 15:21 Physician Review and Approval Statement: Portions of this note were transcribed by an ED scribe. I personally performed the history, physical exam, and medical decision making; and confirm the accuracy of the information in the transcribed note.
[2018-01-31] MEDS ORDERED: NS 1,000 ML IV ONE (15:07)
[2018-01-31 15:38] LABS: PLATELET COUNT 233 10^3/uL (150-400)
[2018-01-31 15:45] LABS: INR 1.15 (0.83-1.16); PROTIME(PATIENT) 14.9 SEC (12.0-15.0)
[2018-01-31 15:47] LABS: CREATINE KINASE 260 IU/L (0-224)
[2018-01-31 17:29] VITALS: BP 99/67
--- NOTE | 2018-02-05 21:07 | CPEKG ---
Test Reason : OPEN Blood Pressure : / mmHG Vent. Rate : 068 BPM Atrial Rate : 068 BPM P-R Int : 170 ms QRS Dur : 116 ms QT Int : 400 ms P-R-T Axes : 042 -23 037 degrees QTc Int : 426 ms Sinus rhythm Nonspecific intraventricular conduction delay Low voltage, precordial leads Confirmed by Kang Hunter [id number] on 02/05/2018 9:07:11 PM Referred By: Confirmed By:Kang Hunter
== END 2018-01-31 17:32 | disposition home or self-care (01) ==
DX: R53.83 Other fatigue (principal); M60.9 Myositis, unspecified; E86.9 Volume depletion, unspecified
CPT/HCPCS: 84484-PO

== ENCOUNTER 2018-03-07 16:28 | Emergency (ER) | payer OTHER ==
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
[2018-03-07] MEDS ORDERED: HYDROmorphONE/DILAUDID 2 MG/ML INJ IVP ONE (16:45)
[2018-03-07] MEDS ORDERED: NS 1,000 ML IV ONE ×2 (16:45→19:07)
[2018-03-07 17:07] LABS: PLATELET COUNT 234 10^3/uL (150-400)
[2018-03-07 17:15] LABS: INR 0.99 (0.83-1.16); PROTIME(PATIENT) 13.3 SEC (12.0-15.0)
[2018-03-07] MEDS ORDERED: IOPAMIDOL (ISOVUE-300) 100 ML BTL ONE ×2 (17:25→19:05)
[2018-03-07] MEDS ORDERED: KETOROLAC 15 MG/1 ML SDV IVP ONE (19:07)
[2018-03-07 19:30] VITALS: BP 103/62
--- NOTE | 2018-03-11 07:10 | CPEKG ---
Test Reason : OPEN Blood Pressure : / mmHG Vent. Rate : 054 BPM Atrial Rate : 055 BPM P-R Int : 174 ms QRS Dur : 103 ms QT Int : 441 ms P-R-T Axes : 040 -31 036 degrees QTc Int : 418 ms Sinus rhythm Left axis deviation Confirmed by Esau Mabry ([id number]) on 03/11/2018 7:09:24 AM Referred By: Confirmed By:Esau Mabry
== END 2018-03-07 20:17 | disposition home or self-care (01) ==
DX: S22.32XA Fracture of one rib, left side, initial encounter for closed fracture (principal); J98.11 Atelectasis; E86.9 Volume depletion, unspecified; V49.49XA Driver injured in collision with other motor vehicles in traffic accident, initial encounter; Y92.410 Unspecified street and highway as the place of occurrence of the external cause
CPT/HCPCS: 84484-PO; 96374; A4565; J1170; J1885; Q9967

== ENCOUNTER → 2018-08-27 | Outpatient (CLI) | payer OTHER ==
[~2018-08-27] MED LIST changes: -BUPIVACAINE 0.5% 30 ML SDV ONE; +IOPAMIDOL (ISOVUE-300) 100 ML BTL ONE; -SKIN ADHESIVE (DERMABOND) 1 EACH TP ONE
== END ==
LOC: FIMAGING 07:38
PROVIDERS: ATTEND Internal Medicine
DX: R10.9 Unspecified abdominal pain (principal); N20.0 Calculus of kidney
CPT/HCPCS: Q9967